=== PATIENT | female | born 1945 | race Caucasian/White ===

== ENCOUNTER 2022-02-25 08:03 | Inpatient (IN) ==
[2022-02-25 09:40] LABS: Mucus,Urine Moderate /LPF (Occasional); RBC,Urine 40-45 /HPF (0-4)
[2022-02-25 09:41] LABS: Urine Appearance Slightly Cloudy (Clear); Urine Color Yellow (Yellow)
[2022-02-25 09:42] LABS: Bilirubin,Urine Negative (Negative); Blood, Urine Moderate mg/dL (Negative); Glucose,Urine (UA) Negative (Negative); Ketones,Urine Negative (Negative); Nitrite,Urine Positive (Negative); Protein,Urine 100 mg/dL (Negative); Urine Specific Gravity > 1.030 (1.001-1.035); Urine Urobilinogen 0.2 eU/dL (<2.0)
[2022-02-25] MEDS ORDERED: SODIUM CHLORIDE 0.9% 1,000 ML IV STA (10:01)
[2022-02-25] MEDS ORDERED: cefTRIAXone 1,000 MG in SODIUM CHLORIDE 0.9% 100 ML IV STA (10:02)
[2022-02-25 10:48] LABS: Basophils # 0.1 10*3/uL (0.0-0.2); Basophils % 0.7 % (0.0-0.8); Eosinophils # 0.2 10*3/uL (0.0-0.87); Eosinophils % 2.9 % (0.00-10.9); Hematocrit 30.6 VOL% (35.7-47.0); Lymphocytes # 1.3 10*3/uL (1.4-4.0); Lymphocytes % 18.9 % (21.3-54.2); Mean Corpuscular HGB Conc 32.7 GM/DL (32-36); Mean Corpuscular Volume 87.7 FL (87-102); Mean Platelet Volume 10.4 FL (9.6-12.0); Monocytes # 0.7 10*3/uL (0.11-0.8); Monocytes % 10.5 % (1.7-12.7); Neutrophils % 64.5 % (38.7-73.9); Platelet Count 178 T/CUMM (130-400); Red Blood Count 3.49 MC/CUMM (3.8-5.5); Red Cell Distribution Width 13.2 % (9.3-17.3); White Blood Count 6.8 T/CUMM (4-12)
[2022-02-25 11:01] LABS: Alanine Aminotransferase 23 U/L (13-56); Alkaline Phosphatase 64 U/L (45-117); Aspartate Amino Transferase 19 U/L (0-37); Bilirubin,Total < 0.39 MG/DL (0.20-1.00); Blood Urea Nitrogen 8 MG/DL (7-18); Calcium 9.6 MG/DL (8.5-10.1); Carbon Dioxide 29 MMOL/L (21-32); Chloride 100 MMOL/L (98-107); Glucose 101 MG/DL (74-106); Osmolality,Calculated 267.1 MOS/KG (273-304); Potassium 3.4 MMOL/L (3.5-5.1); Sodium 135 MMOL/L (136-145); Total Protein 6.5 G/DL (6.4-8.2)
[2022-02-25] MEDS ORDERED: POTASSIUM CHLORIDE 20 MEQ TABLET PO STA (12:01)
[2022-02-25] MEDS ORDERED: ACETAMINOPHEN 325 MG TABLET PO PRN (14:12)
[2022-02-25] MEDS ORDERED: ONDANSETRON 4 MG/2 ML VIAL IV PRN (14:12)
[2022-02-25] MEDS ORDERED: GLUCAGON 1 MG VIAL IM PRN (14:12)
[2022-02-25] MEDS ORDERED: DEXTROSE 10% 250 ML BAG IV PRN (14:12)
[2022-02-25] MEDS: SODIUM CHLORIDE 0.9% 1,000 ML IV SCH (15:34)
[2022-02-25] MEDS: ENOXAPARIN 40 MG/0.4 ML SYRINGE SUBCUT SCH (16:56)
[2022-02-25] MEDS ORDERED: POTASSIUM CHLORIDE 20 MEQ TABLET PO ONE (17:00)
[2022-02-25] MEDS: GABAPENTIN 300 MG CAPSULE PO SCH (21:02)
[2022-02-25] MEDS: PANTOPRAZOLE 40 MG TABLET PO SCH (21:02)
[2022-02-25] MEDS: TAMSULOSIN 0.4 MG CAPSULE PO SCH (21:02)
[2022-02-25] MEDS: HYDROXYCHLOROQUINE 200 MG TABLET PO SCH (21:02)
[2022-02-26] MEDS: SODIUM CHLORIDE 0.9% 1,000 ML IV SCH ×2 (02:29→15:21)
[2022-02-26 05:16] LABS: Basophils % 0.4 % (0.0-0.8); Eosinophils # 0.2 10*3/uL (0.0-0.87); Eosinophils % 3.4 % (0.00-10.9); Hematocrit 28.7 VOL% (35.7-47.0); Hemoglobin 9.4 GM/DL (12.0-16.0); Immature Granulocytes % 2.5 %; Immature Granulocytes Absolute 0.12 #; Lymphocytes # 1.1 10*3/uL (1.4-4.0); Lymphocytes % 24.2 % (21.3-54.2); Mean Corpuscular HGB Conc 32.8 GM/DL (32-36); Mean Platelet Volume 10.4 FL (9.6-12.0); Monocytes # 0.5 10*3/uL (0.11-0.8); NRBC # 0.02 10*3/uL; Neutrophils % 58.5 % (38.7-73.9); Platelet Count 170 T/CUMM (130-400); Red Blood Count 3.26 MC/CUMM (3.8-5.5); Red Cell Distribution Width 13.3 % (9.3-17.3); White Blood Count 4.7 T/CUMM (4-12)
[2022-02-26 05:39] LABS: Free T4 (Free Thyroxine) 1.23 NG/DL (0.76-1.46); Thyroid Stimulating Hormone 2.44 uIU/ml (0.358-3.74)
[2022-02-26] MEDS: LEVOTHYROXINE 100 MCG TABLET PO SCH (05:52)
[2022-02-26 06:06] LABS: Calcium 8.4 MG/DL (8.5-10.1); Osmolality,Calculated 280.1 MOS/KG (273-304); Potassium 3.8 MMOL/L (3.5-5.1)
[2022-02-26] MEDS: ANASTROZOLE 1 MG TABLET PO SCH (09:44)
[2022-02-26] MEDS: HYDROXYCHLOROQUINE 200 MG TABLET PO SCH ×2 (09:47→20:21)
[2022-02-26] MEDS: PANTOPRAZOLE 40 MG TABLET PO SCH ×2 (09:47→20:22)
[2022-02-26] MEDS: GABAPENTIN 300 MG CAPSULE PO SCH ×2 (09:47→20:22)
[2022-02-26] MEDS: OXYBUTYNIN XL 10 MG TABLET PO SCH (09:47)
[2022-02-26] MEDS: ASCORBIC ACID 500 MG TABLET PO SCH (09:47)
[2022-02-26] MEDS: TOFACITINIB 11 MG PO SCH (09:48)
[2022-02-26] MEDS: cefTRIAXone 1,000 MG in SODIUM CHLORIDE 0.9% 100 ML IV SCH (12:10)
[2022-02-26] MEDS: DOCUSATE SODIUM 100 MG CAPSULE PO SCH ×2 (12:11→20:21)
[2022-02-26] MEDS: ENOXAPARIN 40 MG/0.4 ML SYRINGE SUBCUT SCH (15:21)
[2022-02-26] MEDS: TAMSULOSIN 0.4 MG CAPSULE PO SCH (20:22)
[2022-02-27] MEDS: SODIUM CHLORIDE 0.9% 1,000 ML IV SCH ×4 (04:00→16:45)
[2022-02-27] MEDS: LEVOTHYROXINE 100 MCG TABLET PO SCH (05:54)
[2022-02-27 08:26] LABS: Basophils % 0.9 % (0.0-0.8); Eosinophils # 0.1 10*3/uL (0.0-0.87); Eosinophils % 3.7 % (0.00-10.9); Hematocrit 27.7 VOL% (35.7-47.0); Hemoglobin 8.9 GM/DL (12.0-16.0); Immature Granulocytes % 2.9 %; Lymphocytes # 0.9 10*3/uL (1.4-4.0); Lymphocytes % 25.9 % (21.3-54.2); Mean Corpuscular HGB Conc 32.1 GM/DL (32-36); Mean Corpuscular Volume 89.1 FL (87-102); Mean Platelet Volume 10.3 FL (9.6-12.0); Monocytes # 0.4 10*3/uL (0.11-0.8); Monocytes % 12.1 % (1.7-12.7); Neutrophils % 54.5 % (38.7-73.9); Platelet Count 195 T/CUMM (130-400); Red Blood Count 3.11 MC/CUMM (3.8-5.5); Red Cell Distribution Width 13.7 % (9.3-17.3); White Blood Count 3.5 T/CUMM (4-12)
[2022-02-27 08:52] LABS: Calcium 8.6 MG/DL (8.5-10.1); Osmolality,Calculated 277.4 MOS/KG (273-304); Potassium 3.7 MMOL/L (3.5-5.1)
[2022-02-27] MEDS: POTASSIUM CHLORIDE 20 MEQ TABLET PO SCH (09:08)
[2022-02-27] MEDS: ASCORBIC ACID 500 MG TABLET PO SCH (09:08)
[2022-02-27] MEDS: PANTOPRAZOLE 40 MG TABLET PO SCH ×2 (09:09→20:37)
[2022-02-27] MEDS: GABAPENTIN 300 MG CAPSULE PO SCH ×2 (09:09→20:37)
[2022-02-27] MEDS: OXYBUTYNIN XL 10 MG TABLET PO SCH (09:09)
[2022-02-27] MEDS: HYDROXYCHLOROQUINE 200 MG TABLET PO SCH ×2 (09:09→20:37)
[2022-02-27] MEDS: ANASTROZOLE 1 MG TABLET PO SCH (09:09)
[2022-02-27] MEDS: DOCUSATE SODIUM 100 MG CAPSULE PO SCH ×2 (09:10→20:37)
[2022-02-27] MEDS: TOFACITINIB 11 MG PO SCH (09:12)
[2022-02-27] MEDS: cefTRIAXone 1,000 MG in SODIUM CHLORIDE 0.9% 100 ML IV SCH (09:34)
[2022-02-27] MEDS: ENOXAPARIN 40 MG/0.4 ML SYRINGE SUBCUT SCH (16:28)
[2022-02-27] MEDS: PHENAZOPYRIDINE 95 MG TABLET PO SCH (16:29)
[2022-02-27] MEDS: TAMSULOSIN 0.4 MG CAPSULE PO SCH (20:37)
[2022-02-28] MEDS: SODIUM CHLORIDE 0.9% 1,000 ML IV SCH ×3 (02:15→17:47)
[2022-02-28 05:30] LABS: Basophils % 0.7 % (0.0-0.8); Eosinophils # 0.1 10*3/uL (0.0-0.87); Eosinophils % 4.3 % (0.00-10.9); Hematocrit 27.4 VOL% (35.7-47.0); Hemoglobin 8.9 GM/DL (12.0-16.0); Immature Granulocytes % 2.6 %; Immature Granulocytes Absolute 0.08 #; Lymphocytes # 0.9 10*3/uL (1.4-4.0); Lymphocytes % 28.9 % (21.3-54.2); Mean Corpuscular HGB Conc 32.5 GM/DL (32-36); Mean Corpuscular Volume 88.1 FL (87-102); Mean Platelet Volume 9.8 FL (9.6-12.0); Monocytes # 0.3 10*3/uL (0.11-0.8); Monocytes % 11.1 % (1.7-12.7); Neutrophils % 52.4 % (38.7-73.9); Platelet Count 207 T/CUMM (130-400); Red Blood Count 3.11 MC/CUMM (3.8-5.5); Red Cell Distribution Width 13.9 % (9.3-17.3); White Blood Count 3.1 T/CUMM (4-12)
[2022-02-28 05:46] LABS: Calcium 8.2 MG/DL (8.5-10.1); Osmolality,Calculated 283.8 MOS/KG (273-304); Potassium 3.9 MMOL/L (3.5-5.1)
[2022-02-28] MEDS: LEVOTHYROXINE 100 MCG TABLET PO SCH (06:41)
[2022-02-28] MEDS ORDERED: MAGNESIUM SULF RIDER 2 GM/50 ML PREMIX IV ONE (07:24)
[2022-02-28 08:21] LABS: % Iron Saturation 20.7 % (18-50)
[2022-02-28 08:33] LABS: Folate 6.39 NG/ML (5.38-24.0)
[2022-02-28] MEDS: cefTRIAXone 1,000 MG in SODIUM CHLORIDE 0.9% 100 ML IV SCH (09:46)
[2022-02-28] MEDS: ASCORBIC ACID 500 MG TABLET PO SCH (09:48)
[2022-02-28] MEDS: OXYBUTYNIN XL 10 MG TABLET PO SCH (09:48)
[2022-02-28] MEDS: POTASSIUM CHLORIDE 20 MEQ TABLET PO SCH (09:48)
[2022-02-28] MEDS: HYDROXYCHLOROQUINE 200 MG TABLET PO SCH ×2 (09:48→21:26)
[2022-02-28] MEDS: GABAPENTIN 300 MG CAPSULE PO SCH ×2 (09:49→21:26)
[2022-02-28] MEDS: ANASTROZOLE 1 MG TABLET PO SCH (09:49)
[2022-02-28] MEDS: PANTOPRAZOLE 40 MG TABLET PO SCH ×2 (09:49→21:26)
[2022-02-28] MEDS: DOCUSATE SODIUM 100 MG CAPSULE PO SCH ×2 (09:50→21:26)
[2022-02-28] MEDS: TOFACITINIB 11 MG PO SCH (09:51)
[2022-02-28] MEDS: PHENAZOPYRIDINE 95 MG TABLET PO SCH ×3 (09:53→17:38)
[2022-02-28] MEDS: ENOXAPARIN 40 MG/0.4 ML SYRINGE SUBCUT SCH (14:43)
[2022-02-28] MEDS: TAMSULOSIN 0.4 MG CAPSULE PO SCH (21:26)
[2022-03-01 05:29] LABS: Basophils % 0.6 % (0.0-0.8); Eosinophils # 0.2 10*3/uL (0.0-0.87); Eosinophils % 4.8 % (0.00-10.9); Hematocrit 29.6 VOL% (35.7-47.0); Hemoglobin 9.3 GM/DL (12.0-16.0); Immature Granulocytes % 0.9 %; Immature Granulocytes Absolute 0.03 #; Lymphocytes # 0.9 10*3/uL (1.4-4.0); Lymphocytes % 27.8 % (21.3-54.2); Mean Corpuscular HGB Conc 31.4 GM/DL (32-36); Mean Corpuscular Volume 89.7 FL (87-102); Mean Platelet Volume 10.2 FL (9.6-12.0); Monocytes # 0.4 10*3/uL (0.11-0.8); Neutrophils % 52.9 % (38.7-73.9); Platelet Count 258 T/CUMM (130-400); Red Cell Distribution Width 14.2 % (9.3-17.3); White Blood Count 3.3 T/CUMM (4-12)
[2022-03-01] MEDS: LEVOTHYROXINE 100 MCG TABLET PO SCH (05:33)
[2022-03-01] MEDS: SODIUM CHLORIDE 0.9% 1,000 ML IV SCH (05:33)
[2022-03-01 05:46] LABS: Calcium 8.8 MG/DL (8.5-10.1); Osmolality,Calculated 280.1 MOS/KG (273-304); Potassium 3.5 MMOL/L (3.5-5.1)
[2022-03-01] MEDS ORDERED: POTASSIUM CHLORIDE 20 MEQ TABLET PO ONE (07:40)
[2022-03-01] MEDS: cefTRIAXone 1,000 MG in SODIUM CHLORIDE 0.9% 100 ML IV SCH (09:42)
[2022-03-01] MEDS: ASCORBIC ACID 500 MG TABLET PO SCH (09:44)
[2022-03-01] MEDS: HYDROXYCHLOROQUINE 200 MG TABLET PO SCH (09:44)
[2022-03-01] MEDS: GABAPENTIN 300 MG CAPSULE PO SCH (09:44)
[2022-03-01] MEDS: PANTOPRAZOLE 40 MG TABLET PO SCH (09:45)
[2022-03-01] MEDS: OXYBUTYNIN XL 10 MG TABLET PO SCH (09:45)
[2022-03-01] MEDS: PHENAZOPYRIDINE 95 MG TABLET PO SCH ×3 (09:45→16:02)
[2022-03-01] MEDS: ANASTROZOLE 1 MG TABLET PO SCH (09:45)
[2022-03-01] MEDS: TOFACITINIB 11 MG PO SCH (09:51)
[2022-03-01] MEDS: DOCUSATE SODIUM 100 MG CAPSULE PO SCH (09:51)
[2022-03-01] MEDS ORDERED: DOCUSATE SODIUM 100 MG CAPSULE PO PRN (11:00)
[2022-03-01] MEDS: POTASSIUM CHLORIDE 20 MEQ TABLET PO SCH (12:59)
[2022-03-01] MEDS: ENOXAPARIN 40 MG/0.4 ML SYRINGE SUBCUT SCH (16:02)
[2022-03-01 17:05] VITALS: BP 138/62
== END 2022-03-01 18:58 | disposition home health service (06) | DRG 690 ==
LOC: N.ED 08:03 → N.EDINP 08:03 → N.TELEN 16:13
PROVIDERS: ADMIT Hospitalist; ATTEND Hospitalist